=== PATIENT | female | born 1980 | race Caucasian/White ===

== ENCOUNTER 2025-01-16 09:22 | Outpatient (CLI) | payer BC | END 2025-01-16 09:23 | disposition home or self-care (01) | LOC: CSHSLEEP 09:22 | PROVIDERS: ATTEND Family Medicine | DX: G47.33 Obstructive sleep apnea (adult) (pediatric) (principal); R53.83 Other fatigue; F41.9 Anxiety disorder, unspecified; E66.9 Obesity, unspecified; Z68.34 Body mass index [BMI] 34.0-34.9, adult; G47.10 Hypersomnia, unspecified; R06.83 Snoring | CPT/HCPCS: 95810 ==